=== PATIENT | female | born 1985 | race Caucasian/White ===

== ENCOUNTER 2022-03-18 15:00 | Emergency (ER) | payer BC ==
[~2022-03-18] VITALS: Ht 162.6 cm; Wt 72.7 kg
[2022-03-18 15:02] VITALS: BP 132/91
[2022-03-18] MEDS ORDERED: ketorolac trometh inj. 60 MG/2 ML VIAL IM ONE (16:00)
[2022-03-18] MEDS ORDERED: orphenadrine citrate 60mg/2ml inj. IM ONE (16:00)
[2022-03-18] MEDS ORDERED: CYCL-1 PO (17:25)
== END 2022-03-18 17:44 | disposition home or self-care (01) ==
LOC: ER 15:00
DX: M25.552 Pain in left hip (principal); R10.32 Left lower quadrant pain; Z79.899 Other long term (current) drug therapy
CPT/HCPCS: 73502; 96372; 99284; J1885; J2360